=== PATIENT | female | born 1940 | race Hispanic/Latino ===

== ENCOUNTER 2022-04-09 10:00 | Observation (INO) | payer OTHER, MEDICARE ==
[~2022-04-09] VITALS: Ht 149.9 cm; Wt 72.6 kg
[~2022-04-09 10:00] MED LIST: ACET-2743 PO; AMLO-258 PO; ASPI-1197 PO; BIOT10004 PO; CYAN500T9 PO; DULO60CA64 PO; FOLI-103 PO; LEVO25TA9 PO; LORA10TA7 PO; LOSA100T58 PO; METF-444 PO; METO-391 PO; ROSU10TA28 PO
[2022-04-09 10:49] LABS: BASOPHILS % (AUTO) 0.6 % (0.0-5.0); EOSINOPHILS % (AUTO) 3.2 % (0.0-8.0); HEMATOCRIT 38.8 % (36-48); LYMPHOCYTES % (AUTO) 26.3 % (21.0-51.0); MEAN CORPUSCULAR HEMOGLOBIN 29.3 pg (27.0-33.0); MEAN CORPUSCULAR VOLUME 88.8 fL (79-99); MONOCYTES % (AUTO) 7.2 % (3.0-13.0); NEUTROPHILS % (AUTO) 62.4 % (40.0-77.0); PLATELET COUNT (AUTO) 206 K/uL (130-400); RED BLOOD CELL COUNT(AUTO) 4.37 MIL/uL (4.00-5.50); RED CELL DISTRIBUTION WIDTH 12.8 % (11.0-15.5); WHITE BLOOD COUNT (AUTO) 7.2 K/uL (4.8-10.8)
[2022-04-09 11:05] LABS: INR 0.93 (0.85-1.15); PROTHROMBIN TIME 10.1 SEC (9.6-11.6)
[2022-04-09 11:09] LABS: CREATININE 0.9 mg/dL (0.5-1.5)
[2022-04-09 11:11] LABS: APPEARANCE,URINE Clear (CLEAR); BILIRUBIN,URINE Negative (NEGATIVE); COLOR,URINE Yellow (YELLOW); GLUCOSE, URINE (UA) Negative (NEGATIVE); KETONES,URINE Negative (NEGATIVE); LEUKOCYTE ESTERASE ,URINE Trace (NEGATIVE); NITRATE,URINE Negative (NEGATIVE); OCCULT BLOOD,URINE Negative (NEGATIVE); PROTEIN,URINE Negative (NEGATIVE); UROBILINOGEN,URINE 0.2 mg/dL (0.2-1.0)
[2022-04-09 11:25] LABS: BACTERIA,URINE Rare /HPF (None Seen); RBC,URINE 0-1 /HPF (0-1); SQUAMOUS EPITHELIAL CELL,UR Rare /HPF (0-2); WBC,URINE 0-1 /HPF (0-1)
[2022-04-10 14:26] VITALS: BP 147/69
[2022-04-10] MEDS ORDERED: vitamin d3 PO (15:37)
[2022-04-10] MEDS ORDERED: TRAM50TA4 PO (15:37)
[2022-04-10] MEDS ORDERED: cranberry PO (15:37)
[2022-04-10] MEDS ORDERED: VITA1TAB22 PO (15:37)
[2022-04-11] VITALS (21 sets, daily range): BP systolic 129–164; BP diastolic 52–70
[2022-04-11] MEDS ORDERED: 0.9%NACL 1000ML 1,000 ML IV ONE (07:25)
[2022-04-11] MEDS ORDERED: CEFAZOLIN SODIUM 1 GM VIAL IVP ONE (08:00)
[2022-04-11] MEDS ORDERED: PROPOFOL 10 MG/ML 20ML VIAL IV ONE (11:47)
[2022-04-11] MEDS ORDERED: SUCCINYLCHOLINE CHLORIDE 20 MG/ML 10 ML VIAL ONE (11:47)
[2022-04-11] MEDS ORDERED: LIDOCAINE PF 100MG/5ML (2%) SYRINGE 5ML ONE (11:47)
[2022-04-11] MEDS ORDERED: GLYCOPYRROLATE 1 MG/5 ML SYRINGE ONE (11:47)
[2022-04-11] MEDS ORDERED: ROCURONIUM 10MG/1ML SYR 10 MG/ML ML ONE (11:47)
[2022-04-11] MEDS ORDERED: FENTANYL CITRATE PF 50 MCG/1 ML 2ML VIAL ONE ×3 (11:48→14:40)
[2022-04-11] MEDS ORDERED: ROPIVACAINE 0.5% 5MG/ML 30ML IJ ONE (11:52)
[2022-04-11] MEDS ORDERED: CEFAZOLIN SODIUM 2 GM VIAL IV ONE ×2 (12:30)
[2022-04-11] MEDS ORDERED: TRANEXAMIC ACID 1000MG/10ML ONE ×2 (12:33→16:06)
[2022-04-11] MEDS ORDERED: CEFAZOLIN SODIUM 1 GM VIAL ONE (12:33)
[2022-04-11] MEDS ORDERED: EPHEDRINE SULFATE 50 MG/ML AMPULE ONE (12:37)
[2022-04-11] MEDS ORDERED: ONDANSETRON 4MG INJ ONE (12:56)
[2022-04-11] MEDS ORDERED: TRANEXAMIC ACID 1000MG/10ML IV ONE ×2 (12:56)
[2022-04-11] MEDS ORDERED: CEFAZOLIN SODIUM 1 GM VIAL IRRIG ONE (13:10)
[2022-04-11] MEDS ORDERED: NEOSTIGMINE 5MG/5ML SYR IV ONE (14:57)
[2022-04-11] MEDS ORDERED: KCL 20 MEQ ERTAB PO PRN (15:30)
[2022-04-11] MEDS: 0.9%NACL 1000ML 1,000 ML IV SCH (15:30)
[2022-04-11] MEDS ORDERED: POTASSIUM CHLORIDE 10% ELIXIR 20 MEQ/15 ML UDCUP PO PRN (15:30)
[2022-04-11] MEDS ORDERED: CALCIUM CARB 500MG PO PRN (15:30)
[2022-04-11] MEDS ORDERED: TRAMADOL HCL 50 MG TABLET PO PRN (15:30)
[2022-04-11] MEDS ORDERED: KETOROLAC 15MG/ML VIAL (15MG/ML) IV PRN (15:30)
[2022-04-11] MEDS ORDERED: LIDOCAINE HCL-MPF 1% 2ML VIAL IV PRN (15:30)
[2022-04-11] MEDS ORDERED: FERROUS FUMARATE 324 MG TABLET PO PRN (15:30)
[2022-04-11] MEDS ORDERED: ONDANSETRON 4MG INJ IVP PRN (15:30)
[2022-04-11] MEDS ORDERED: POTASSIUM CHLORIDE 20MEQ/100ML 100 ML IV PRN (15:30)
[2022-04-11] MEDS: ACETAMINOPHEN 500 MG TABLET PO SCH (15:30)
[2022-04-11] MEDS ORDERED: DiphenhydrAMINE HCL 50 MG/ML VIAL IVP PRN (15:30)
[2022-04-11] MEDS ORDERED: OXYCODONE HCL 5 MG TAB PO PRN (15:30)
[2022-04-11] MEDS ORDERED: MEPERIDINE-PF 25 MG/ML SYG ONE ×2 (16:11→16:31)
[2022-04-11] MEDS: INSULIN HUMULIN R 100 UNIT/ML 3ML SQ SCH ×2 (16:30→21:00)
[2022-04-11] MEDS ORDERED: ACETAMINOPHEN 500 MG TABLET PO PRN (18:00)
[2022-04-11] MEDS: OXYCODONE HCL 5 MG TAB PO PRN (18:38)
[2022-04-11] MEDS ORDERED: ASPIRIN 81 MG EC TAB PO SCH (21:00)
[2022-04-11] MEDS ORDERED: METOPROLOL SUCCINATE 50 MG TAB.SR.24H PO SCH (21:00)
[2022-04-11] MEDS ORDERED: DULOXETINE HCL 30 MG CAP PO SCH (21:00)
[2022-04-11] MEDS ORDERED: LOSARTAN 100 MG TABLET PO SCH (21:00)
[2022-04-11] MEDS ORDERED: Rosuvastatin Calcium 10 MG PO SCH (21:00)
[2022-04-11] MEDS: CEFAZOLIN SODIUM 1 GM VIAL IVP SCH (21:16)
[2022-04-11] MEDS: FAMOTIDINE 20MG TAB PO SCH (21:17)
[2022-04-11] MEDS: ASPIRIN 81 MG EC TAB PO SCH (21:18)
[2022-04-12 00:05] VITALS: BP 142/55
[2022-04-12] MEDS: ACETAMINOPHEN 500 MG TABLET PO SCH ×3 (00:09→17:43)
[2022-04-12 04:20] VITALS: BP 142/67
[2022-04-12 05:06] LABS: HEMATOCRIT 33.5 % (36-48); MEAN CORPUSCULAR HEMOGLOBIN 28.5 pg (27.0-33.0); MEAN CORPUSCULAR HGB CONC 32.2 g/dL (32.0-36.0); MEAN CORPUSCULAR VOLUME 88.4 fL (79-99); RED BLOOD CELL COUNT(AUTO) 3.79 MIL/uL (4.00-5.50); WHITE BLOOD COUNT (AUTO) 8.5 K/uL (4.8-10.8)
[2022-04-12] MEDS: CEFAZOLIN SODIUM 1 GM VIAL IVP SCH (05:14)
[2022-04-12 05:18] LABS: CREATININE 0.9 mg/dL (0.5-1.5); POTASSIUM 3.6 mmol/L (3.5-5.1)
[2022-04-12] MEDS: OXYCODONE HCL 5 MG TAB PO PRN ×2 (06:08→09:32)
[2022-04-12] MEDS: INSULIN HUMULIN R 100 UNIT/ML 3ML SQ SCH ×3 (06:13→16:30)
[2022-04-12] MEDS ORDERED: LEVOTHYROXINE 25 MCG TABLET PO SCH (06:30)
[2022-04-12 08:00] VITALS: BP 131/58
[2022-04-12] MEDS ORDERED: METFORMIN HCL 500 MG TABLET PO SCH (08:00)
[2022-04-12] MEDS ORDERED: POLYETHYLENE GLYCOL 3350 17 GM POWD.PACK PO SCH (09:00)
[2022-04-12] MEDS ORDERED: LORATADINE 10 MG TABLET PO SCH (09:00)
[2022-04-12] MEDS ORDERED: AMLODIPINE 5 MG TAB PO SCH (09:00)
[2022-04-12] MEDS: FAMOTIDINE 20MG TAB PO SCH (09:32)
[2022-04-12] MEDS: ASPIRIN 81 MG EC TAB PO SCH (09:32)
[2022-04-12] MEDS: 0.9%NACL 1000ML 1,000 ML IV SCH (09:40)
[2022-04-12 12:00] VITALS: BP 134/62
[2022-04-12 16:00] VITALS: BP 142/63
[2022-04-12] MEDS ORDERED: HYDR-4060 PO (16:22)
[2022-04-12] MEDS ORDERED: AEC81 PO (16:22)
[2022-04-14] MEDS ORDERED: BISACODYL 10 MG SUPP.RECT RC PRN (15:30)
== END 2022-04-12 19:30 | disposition home health service (06) ==
LOC: DAHIP 04-11 06:22 → 4DH 04-11 18:32 → 4AH 04-12 00:11
PROVIDERS: ADMIT Orthopaedic Surgery; ATTEND Orthopaedic Surgery
DX: M17.11 Unilateral primary osteoarthritis, right knee (principal); Z20.822 Contact with and (suspected) exposure to COVID-19; M21.061 Valgus deformity, not elsewhere classified, right knee; D62 Acute posthemorrhagic anemia; S83.011A Lateral subluxation of right patella, initial encounter; I10 Essential (primary) hypertension; E78.5 Hyperlipidemia, unspecified; K21.9 Gastro-esophageal reflux disease without esophagitis; X58.XXXA Exposure to other specified factors, initial encounter; Y93.89 Activity, other specified; Y92.89 Other specified places as the place of occurrence of the external cause
CPT/HCPCS: 27447; 36415 ×2; 64447; 76942; 80048 ×2; 81001; 82948 ×6; 85025; 85027; 85610; 87088; 87635; 87641; 93005; 96374; 96375; 96376; 97039 ×2; 97116 ×2; 97161; 97530 ×2; A4215; A4221; A4222; A4223; A4649 ×5; A4663; A5120; A9272; C1776; G0378 ×25; J0330; J0690 ×6; J1885; J2001; J2175 ×2; J2405 ×2; J2704; J2710; J2795; J3010 ×3; J3490 ×5; J7030; J7120